=== PATIENT | female | born 1945 | race Hispanic/Latino ===

== ENCOUNTER → 2019-06-08 | Outpatient (CLI) | payer MEDICARE ==
[~2019-06-08] MED LIST: REGADENOSON 0.4 MG/5 ML PF SYG IVP SCH
== END | disposition home or self-care (01) ==
LOC: SHCH 07:52
PROVIDERS: ATTEND Internal Medicine Cardiovascular Disease
DX: I34.0 Nonrheumatic mitral (valve) insufficiency (principal); I10 Essential (primary) hypertension; I34.9 Nonrheumatic mitral valve disorder, unspecified
CPT/HCPCS: 78452; 93017; 96374; A9500 ×2; J2785

== ENCOUNTER 2020-02-08 05:45 | Day surgery (SDC) | payer MEDICARE ==
[2020-02-03 09:45] LABS: BASOPHILS % (AUTO) 0.7 % (0.0-5.0); EOSINOPHILS % (AUTO) 4.8 % (0.0-8.0); HEMATOCRIT 36.7 % (36-48); LYMPHOCYTES % (AUTO) 15.5 % (21.0-51.0); MEAN CORPUSCULAR HEMOGLOBIN 29.9 pg (27.0-33.0); MEAN CORPUSCULAR HGB CONC 32.4 g/dL (32.0-36.0); MEAN CORPUSCULAR VOLUME 92.2 fL (79-99); MONOCYTES % (AUTO) 5.1 % (3.0-13.0); NEUTROPHILS % (AUTO) 73.7 % (40.0-77.0); PLATELET COUNT (AUTO) 171 K/uL (130-400); RED BLOOD CELL COUNT(AUTO) 3.98 MIL/uL (4.00-5.50); RED CELL DISTRIBUTION WIDTH 14.7 % (11.0-15.5); WHITE BLOOD COUNT (AUTO) 5.7 K/uL (4.8-10.8)
[2020-02-03 09:55] LABS: CREATININE 2.8 mg/dL (0.5-1.5)
[2020-02-03 09:59] LABS: INR 1.02 (0.85-1.15); PARTIAL THROMBOPLASTIN TIME 25.6 SEC (26.3-35.5)
[2020-02-07 10:53] VITALS: BP 224/104
--- NOTE | 2020-02-07 12:02 | NUR ---
Order Notified SHIRA Mack that pt's BUN is 40; and that pt has a hx of a left nephrectomy due to having cancer. Order was received to hydrate pt upon arrival with NS at 75ml/hr. Order was noted in communication sheet in chart. Addendum: 02/07/20 at 1205 by HAILE ESTRADA RN RN Also made aware of UA. No further orders in regards to UA received Addendum: 02/08/20 at 0855 by HAILE ESTRADA RN RN Wrong patient
[2020-02-08] VITALS (12 sets, daily range): BP systolic 129–184; BP diastolic 50–81
[~2020-02-08] VITALS: Ht 154.9 cm; Wt 62.1 kg
[~2020-02-08 05:45] MED LIST changes: +AEC81 PO; +AMLO-258 PO; +ATOR20TA65 PO; +CARV25TA PO; +CLON0.2T PO; +HYDR-4154 PO; +INSU100I24 SQ; -REGADENOSON 0.4 MG/5 ML PF SYG IVP SCH; +SODIUM CHLORIDE 0.9% 500ML 500 ML IV SCH
[2020-02-08] MEDS ORDERED: SODIUM CHLORIDE 0.9% 1000ML 1,000 ML IV ONE (06:12)
--- NOTE | 2020-02-08 06:15 | NUR ---
PATIENT ARRIVED TO DAY PATIENT ACCOMPANIED BY HERSELF. PATIENT BROUGHT IN BY WHEELCHAIR. PATIENT AAOX3, VITAL SIGNS STABLE. DENIES ANY PAIN AT THIS TIME. PROCEDURE VERIFIED/CONFIRMED WITH PATIENT. HOSPITAL ROUTINE EXPLAINED TO PATIENT, ALL QUESTIONS/CONCERNS ADDRESSED.
[2020-02-08] MEDS ORDERED: LISI40TA4 PO (07:12)
[2020-02-08] MEDS ORDERED: BRIM5DRO OP (07:12)
[2020-02-08] MEDS ORDERED: HEPARIN SODIUM 1000UNIT/ML 10ML VIAL ONE (08:12)
[2020-02-08] MEDS ORDERED: LIDOCAINE HCL 2% 20ML ONE (08:13)
[2020-02-08] MEDS ORDERED: IOHEXOL-350 75 ML VIAL IV ONE (08:13)
--- NOTE | 2020-02-08 08:40 | NUR ---
PATIENT TRANSFERRED TO [facility] VIA BED BY LYUDMILA AGUILERA.
[2020-02-08 08:44] LABS: APPEARANCE,URINE Cloudy (CLEAR); BILIRUBIN,URINE Negative (NEGATIVE); COLOR,URINE Yellow (YELLOW); GLUCOSE, URINE (UA) >=1000 mg/dL (NEGATIVE); KETONES,URINE 15 mg/dL (NEGATIVE); LEUKOCYTE ESTERASE ,URINE Negative (NEGATIVE); NITRATE,URINE Negative (NEGATIVE); OCCULT BLOOD,URINE Trace (NEGATIVE); PROTEIN,URINE >=1000 mg/dL (NEGATIVE)
[2020-02-08 08:54] LABS: BACTERIA,URINE Few /HPF (None Seen); RBC,URINE 0-1 /HPF (0-1); YEAST,URINE BUDDING Few /HPF (None Seen)
[2020-02-08] MEDS ORDERED: NITROGLYCERIN 4.1 GM SPRAY TL ONE (09:22)
[2020-02-08] MEDS ORDERED: GLUCAGON 1MG KIT 1 MG ML IM PRN (09:45)
[2020-02-08] MEDS ORDERED: SODIUM CHLORIDE 0.9% 10 ML VIAL IVP SCH (09:45)
[2020-02-08] MEDS ORDERED: DEXTROSE 50%-WATER 50 ML DISP.SYRIN IV PRN (09:45)
[2020-02-08] MEDS ORDERED: INSULIN HUMULIN R 100 UNIT/ML 3ML SQ SCH (11:30)
--- NOTE | 2020-02-08 13:15 | NUR ---
Received report from Pau Avalos RN. Pt previously ate lunch and is currently resting comfortably, denies any severe pain, nausea or dizziness.
--- NOTE | 2020-02-08 13:19 | NUR ---
HANDOFF COMMUNICATION GIVEN TO CHRISTIAN HOPPER RN USING SBAR AT BEDSIDE. DRESSING TO RIGHT GROIN DRY/INTACT, NO HEMATOMA NO BLEEDING. AREA IS SOFT/NONTENDER.
--- NOTE | 2020-02-08 15:40 | NUR ---
Attempted to reach pt's daughter to give discharge instructions, but no answer. Pt's 6 hours of bedrest completed. Pt sat up in bed. Site remains soft and non-tender. Dressing clean, dry and intact.
--- NOTE | 2020-02-08 16:30 | NUR ---
Pt discharged home, tolerating fluids/solids, transferring well from bed to wheelchair, denies any severe pain, nausea or dizziness. Pt stated they already voided via bedpan following the procedure. Dressing to right groin remains clean, dry, and intact, site soft and non-tender. I was able to reach daughter Marcia Tamez and gave discharge instructions via the telephone. Prior to that instructions given to pt at bedside. Pt and daughter report no further questions at this time. Pt and daughter informed of consult with Dr. Staples. H&P, heart cath diagram, and facesheet faxed to Dr. Staples office.
== END 2020-02-08 16:30 | disposition home or self-care (01) ==
LOC: DAH 05:45
PROVIDERS: ATTEND Internal Medicine Cardiovascular Disease
DX: I25.119 Atherosclerotic heart disease of native coronary artery with unspecified angina pectoris (principal); E11.22 Type 2 diabetes mellitus with diabetic chronic kidney disease; I13.2 Hypertensive heart and chronic kidney disease with heart failure and with stage 5 chronic kidney disease, or end stage renal disease; I50.42 Chronic combined systolic (congestive) and diastolic (congestive) heart failure; N18.6 End stage renal disease; E78.5 Hyperlipidemia, unspecified; Z79.01 Long term (current) use of anticoagulants; Z99.2 Dependence on renal dialysis; Z79.82 Long term (current) use of aspirin; Z79.899 Other long term (current) drug therapy; Z98.890 Other specified postprocedural states; Z82.49 Family history of ischemic heart disease and other diseases of the circulatory system; Z98.891 History of uterine scar from previous surgery; Z89.439 Acquired absence of unspecified foot
CPT/HCPCS: 36415; 71045; 80048; 81001; 82948 ×2; 85025; 85610; 85730; 93005; 93458; A4215; A4216; A4221; A4222; A4223 ×3; A4606; A4663; C1894; J1644; J1815; J3490; J7030; Q9967